=== PATIENT | female | born 1980 | race Caucasian/White ===

== ENCOUNTER 2023-06-04 15:13 | Outpatient (CLI) | payer BC, SELFPAY ==
[2023-06-04 22:33] LABS: SARS PCR* Negative SARS-CoV-2 (Negative)
== END 2023-06-04 15:14 | disposition home or self-care (01) ==
LOC: KYNREF 15:13
PROVIDERS: Visit Provider Nurse Practitioner Family
DX: J06.9 Acute upper respiratory infection, unspecified (principal)
CPT/HCPCS: 87635

== ENCOUNTER 2023-09-24 08:19 | Outpatient (CLI) | payer BC, SELFPAY | END 2023-09-24 08:20 | disposition home or self-care (01) | PROVIDERS: PCP Nurse Practitioner Family; Visit Provider Nurse Practitioner Family | DX: Z13.29 Encounter for screening for other suspected endocrine disorder (principal); Z13.220 Encounter for screening for lipoid disorders; Z13.21 Encounter for screening for nutritional disorder; Z13.0 Encounter for screening for diseases of the blood and blood-forming organs and certain disorders involving the immune mechanism; Z13.228 Encounter for screening for other metabolic disorders | CPT/HCPCS: 80053; 80061; 82306; 84443; 85025 ==